=== PATIENT | female | born 1945 | race Caucasian/White ===

== ENCOUNTER 2022-09-22 21:40 | Inpatient (IN) | payer MEDICARE ==
[2022-09-22] MEDS ORDERED: ASPIRIN 325 MG TAB PO STA (22:37)
--- NOTE | 2022-09-22 22:39 | ED ---
General Adult HPI - General Chief complaint: Neuro Symptoms/Deficit Stated complaint: stroke Time Seen by Provider: 09/22/22 22:00 Source: EMS Mode of arrival: EMS Limitations: no limitations - History of Present Illness Initial comments: 77-year-old female with past mental history of hypothyroid, hypertension, COPD, macular degeneration who presents to the emergency department from [facility]. She states that she awoke in the middle of the night and had right- sided weakness. Her last known well was 9 PM last night. Her symptoms persisted throughout the day and eventually went into [facility]. Lab trace studies were completed and a CT of the patient's head and neck were performed. There is no identifiable signs of stroke. It was recommended that they be transferred to a facility with neurologic capabilities and patient opted to come to the [facility]. She continues to have persistent right-sided weakness. States that she attempted to get out of the bed and ambulate however had no control over her right leg. No previous history of stroke. No head trauma. Does not take any blood thinners. Previously did not require any assistance with ambulation. She denies any new visual changes other than those from her macular degeneration. She did have some slurred speech which appears to have been resolved. No facial droop. No other alleviating, precipitating or modifying factors - Related Data Home Medications Medication Instructions Recorded Confirmed Budesonide/Formoterol Fumarate 2 puff INHALATION RT-BID 09/23/22 09/23/22 [Symbicort 160-4.5 Mcg Inhaler] Levothyroxine Sodium [Synthroid] 112 mcg PO AC-BRKFST 09/23/22 09/23/22 Omeprazole 20 mg PO HS 09/23/22 09/23/22 Tiotropium [place] [Spiriva 1 cap INHALATION RT-DAILY 09/23/22 09/23/22 Handihaler] lisinopriL [Prinivil] 10 mg PO DAILY 09/23/22 09/23/22 Previous Rx's Medication Instructions Recorded Aspirin 81 mg PO DAILY #30 tab 09/25/22 Atorvastatin [Lipitor] 80 mg PO HS #30 tab 09/25/22 Clopidogrel [Plavix] 75 mg PO DAILY 30 Days #30 tab 09/25/22 Allergies Allergy/AdvReac Type Severity Reaction Status Date / Time No Known Allergies Allergy Verified 09/23/22 10:43 Review of Systems ROS Statement: Those systems with pertinent positive or pertinent negative responses have been documented in the HPI. ROS Other: All systems not noted in ROS Statement are negative. Past Medical History - Past Family History Mother Family Medical History: Cancer Additional Family Medical History / Comment(s): compliications of surgery, cervical cancer family Additional Family Medical History / Comment(s): no report of CAD or stroke General Exam Limitations: no limitations General appearance: alert, in no apparent distress Head exam: Present: atraumatic, normocephalic, normal inspection Eye exam: Present: normal appearance, PERRL, EOMI. Absent: scleral icterus, conjunctival injection, periorbital swelling ENT exam: Present: normal exam Neck exam: Present: normal inspection. Absent: tenderness, meningismus, lymphadenopathy Respiratory exam: Present: normal lung sounds bilaterally. Absent: respiratory distress, wheezes, rales, rhonchi, stridor Cardiovascular Exam: Present: regular rate, normal rhythm, normal heart sounds. Absent: systolic murmur, diastolic murmur, rubs, gallop, clicks GI/Abdominal exam: Present: soft, normal bowel sounds. Absent: distended, tenderness, guarding, rebound, rigid Extremities exam: Present: other (4/5 strength rue, 3/5 strength rle, 5/5 strength lue, 4/5 strength lle) Neurological exam: Present: alert, oriented X3, CN II-XII intact Psychiatric exam: Present: normal affect, normal mood Skin exam: Present: warm, dry, intact, normal color. 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 IL interval 146. QRS 96. QTC of 44. No acute ST segment elevations or depressions. Some baseline artifact. EKG was interpreted by myself Medical Decision Making - Medical Decision Making Upon arrival patient was placed in room 3. A thorough history and physical exam was performed. Patient previously had an NIH of 9 at [facility]. NIH is assessed at this time and is 6 for weakness in the right arm and leg. Last known well was 9 PM last night. Patient will receive an aspirin and a statin as she did not receive one at the previous facility. I did repeat laboratory studies. She will be admitted for neurology consultation. Patient remained in stable condition awaiting a bed on the floor - Lab Data Result diagrams: 09/22/22 22:43 09/22/22 22:43 Lab Results 09/22/22 09/22/22 09/22/22 Range/Units 22:43 22:43 22:43 WBC 9.4 (3.8-10.6) k/uL RBC 4.80 (3.80-5.40) m/uL Hgb 14.7 (11.4-16.0) gm/dL Hct 44.0 (34.0-46.0) % MCV 91.8 (80.0-100.0) fL MCH 30.6 (25.0-35.0) pg MCHC 33.4 (31.0-37.0) g/dL RDW 13.1 (11.5-15.5) % Plt Count 288 (150-450) k/uL MPV 9.3 Neutrophils % 67 % Lymphocytes % 22 % Monocytes % 5 % Eosinophils % 5 % Basophils % 1 % Neutrophils # 6.3 (1.3-7.7) k/uL Lymphocytes # 2.1 (1.0-4.8) k/uL Monocytes # 0.5 (0-1.0) k/uL Eosinophils # 0.4 (0-0.7) k/uL Basophils # 0.1 (0-0.2) k/uL PT 10.2 (9.0-12.0) sec INR 1.0 (<1.2) APTT 26.8 (22.0-30.0) sec Sodium 138 (137-145) mmol/L Potassium 4.6 (3.5-5.1) mmol/L Chloride 108 H (98-107) mmol/L Carbon Dioxide 23 (22-30) mmol/L Anion Gap 7 mmol/L BUN 14 (7-17) mg/dL Creatinine 0.89 (0.52-1.04) mg/dL Est GFR (CKD-EPI)AfAm 72 (>60 ml/min/1.73 sqM) Est GFR (CKD-EPI)NonAf 63 (>60 ml/min/1.73 sqM) Glucose 96 (74-99) mg/dL Calcium 9.6 (8.4-10.2) mg/dL Total Bilirubin 0.5 (0.2-1.3) mg/dL AST 24 (14-36) U/L ALT 17 (4-34) U/L Alkaline Phosphatase 105 (38-126) U/L Total Protein 6.6 (6.3-8.2) g/dL Albumin 3.9 (3.5-5.0) g/dL Disposition Clinical Impression: Right sided weakness, Cerebrovascular accident (CVA) Disposition: ADMITTED IP TO THIS [facility] Condition: Stable Is patient prescribed a controlled substance at d/c from ED?: No Time of Disposition: 22:54 Decision to Admit Reason: Admit from EC Decision Date: 09/22/22 Decision Time: 22:54
[2022-09-22 22:55] LABS: Basophils # (A) 0.1 k/uL (0-0.2); Basophils % (A) 1 %; Eosinophils # (A) 0.4 k/uL (0-0.7); Eosinophils % (A) 5 %; HGB 14.7 gm/dL (11.4-16.0); Lymphocytes # (A) 2.1 k/uL (1.0-4.8); Lymphocytes % (A) 22 %; MCH 30.6 pg (25.0-35.0); MCHC 33.4 g/dL (31.0-37.0); MCV 91.8 fL (80.0-100.0); Mean Platelet Volume 9.3; Monocytes # (A) 0.5 k/uL (0-1.0); Monocytes % (A) 5 %; Neutrophils # (A) 6.3 k/uL (1.3-7.7); Neutrophils % (A) 67 %; Platelet Count 288 k/uL (150-450); RDW 13.1 % (11.5-15.5); WBC 9.4 k/uL (3.8-10.6)
[2022-09-22 23:03] LABS: Partial Thromboplastin Time 26.8 sec (22.0-30.0); Prothrombin Time 10.2 sec (9.0-12.0)
[2022-09-22 23:04] LABS: Albumin 3.9 g/dL (3.5-5.0); Calcium 9.6 mg/dL (8.4-10.2); Potassium 4.6 mmol/L (3.5-5.1); Total Bilirubin 0.5 mg/dL (0.2-1.3); Total Protein 6.6 g/dL (6.3-8.2)
--- NOTE | 2022-09-22 23:51 | P.HPIM ---
History of Present Illness H&P Date: 09/22/22 Chief Complaint: stroke like symptoms 77 year old female with hypertension , hyperlipidemia, COPD , hypothyroid patient was at her baseline status of health, however, she woke up this morning with right sided weakness and some numbness over her right side of the tongue and right UE. she was also having some difficulties finding words. she did not notify her family and thought she might have slept on the wrong side of the bed. however, few hours later, she discussed her symptoms with her daughter who decided to take her to [facility] where she was diagnosed with stroke and was transferred to our facility for further neuro eval. upon arrival she was out of the window for tpa, and having residual right sided weakness however, improving overall. she denies any history of stroke, CAD, CHF, afib, recent travel, or hospitalization, denies any history of stroke. patient otherwise , reporting no headache, changes in her vision (known to have macular degenration) no changes in hearing. no recent falls . blood work reviewed and overall unremarkable CT imaging of the brain no acute pathology patient quit smoking for many years, and has started smoking again few months ago , denies any illicit drugs or heavy alcohol Review of Systems Pertinent positives as noted in HPI. All other systems were reviewed and are ne gative Past Medical History Past Medical History: COPD, Hypertension, Thyroid Disorder Smoking Status: Current every day smoker - Past Family History family Additional Family Medical History / Comment(s): no report of CAD or stroke Medications and Allergies Allergies Allergy/AdvReac Type Severity Reaction Status Date / Time No Known Allergies Allergy Verified 09/22/22 21:55 Physical Exam Vitals: Vital Signs Temp Pulse Resp BP Pulse Ox 09/22/22 22:52 83 15 184/83 100 09/22/22 21:56 98.2 F 84 15 171/85 98 Intake and Output 09/22/22 09/22/22 09/23/22 14:59 22:59 06:59 Other: Weight 122.47 kg Constitutional: No acute distress, conversant, pleasant Eyes: Anicteric sclerae, moist conjunctiva, Pupils equal round reactive to light ENMT: NC/AT Oropharynx clear, no erythema, or exudates Neck: Supple no masses, or JVD No carotid bruits No thyromegaly Lungs: Clear to auscultation Clear to percussion Normal respiratory effort, no accessory muscle use Cardiovascular: Heart regular in rate and rhythm, No murmurs, gallops, or rubs No peripheral edema Abdominal: Soft Nontender, no guarding, rebound or rigidity Abdomen moving with respiration Normoactive bowel sounds No hepatomegaly, No splenomegaly No palpable mass No abdominal wall hernia noted Skin: Normal temperature, tone, texture, turgor No induration No subcutaneous nodules No rash, lesions No ulcers Extremities: No digital cyanosis No clubbing Pedal pulses intact and symmetrical Radial pulses intact and symmetrical No calf tenderness Psychiatric: Alert and oriented to person, place and time Appropriate affect fair judgement Neuro Muscles Strength 4/5 in bilateral upper extremities right weaker than left, and 3/5 right lower extremity , 4/5 left lower extremity Sensation to light touch grossly present throughout Cranial nerves II-XII grossly intact No focal sensory deficits finger nose test intact bilaterally heel shine was slightly off with the right foot Lymphatics: no palpable cervical or supraclavicular lymph nodes Results CBC & Chem 7: 09/22/22 22:43 09/22/22 22:43 Labs: Abnormal Lab Results - Last 24 Hours (Table) 09/22/22 Range/Units 22:43 Chloride 108 H (98-107) mmol/L Assessment and Plan Assessment: acute stroke like symptoms CT imaging of the brain no acute pathology neurochecks fall precautions allow for permissible hypertension for 24 hours ASA statin check echo cardiogram cardiac monitoring monitor vital signs PT/OT eval check lipid profile , Thyroid function counseled regarding smoking cessation consult neurology full code DVT PPX mechanical
[2022-09-23] MEDS: ATORVASTATIN 80 MG TAB PO SCH ×2 (00:47→20:22)
[2022-09-23] MEDS: SYMBICORT 160-4.5 MCG INHALER INHALATION SCH ×3 (01:18→20:28)
[2022-09-23] MEDS: ASPIRIN 325 MG TAB PO SCH (08:22)
[2022-09-23] MEDS ORDERED: ATORVASTATIN 40 MG TAB PO SCH (09:00)
--- NOTE | 2022-09-23 12:22 | P.PN ---
Subjective Progress Note Date: 09/23/22 Pt reports improvement in her right sided weakness, but not back to baseline. Gen: awake, alert HEENT: normocephalic, atraumatic, good hearing acuity, moist mucous membranes Resp: good air exchange, breathing comfortably with no accessory muscle use CVS: good distal perfusion x 4, GI: soft, NTTP, ND : no SPT, no CVAT, huston catheter not present MSK: no pitting edema, no clubbing Neuro: Right-sided 4 out of 5 motor weakness, moving all extremities Psych: cooperative, euthymic mood Assessment/plan: Right Sided Weakness CT imaging of the brain no acute pathology neurochecks fall precautions allow for permissible hypertension for 24 hours ASA statin check echo cardiogram cardiac monitoring monitor vital signs PT/OT eval MRI Brain check lipid profile , Thyroid function counseled regarding smoking cessation consult neurology COPD without exacerbation -resume home nebulizers/inhalers Levothyroxine -resume home synthroid full code DVT PPX mechanical Objective - Vital Signs Vital signs: Vital Signs Temp 97.9 F 09/23/22 12:00 Pulse 74 09/23/22 12:00 Resp 21 09/23/22 12:00 BP 138/79 09/23/22 12:00 Pulse Ox 91 L 09/23/22 12:00 FiO2 Intake & Output 09/22/22 09/23/22 09/23/22 18:59 06:59 18:59 Weight 122.47 kg - Labs CBC & Chem 7: 09/22/22 22:43 09/22/22 22:43 Labs: Abnormal Lab Results - Last 24 Hours (Table) 09/22/22 Range/Units 22:43 Chloride 108 H (98-107) mmol/L
--- NOTE | 2022-09-23 16:06 | P.CNNES ---
History of Present Illness Consult date: 09/23/22 Reason for Consult: stroke History of Present Illness: The patient is a pleasant 77-year-old female who is seen in neurologic consultation on September 23, 2022, via teleneurology. The patient reports that her right arm and leg are weak. She also reports slurred speech. She says she woke up yesterday morning with these symptoms, at approximately 3 AM. She felt that she perhaps had laid incorrectly on her side and that the symptoms would resolve. She elected to go back to sleep. When she awoke again at about 9 AM, the symptoms continued to be present. The patient states that she did not notify any family members until her daughter came to her home at approximately 12:30 PM. Because the patient was having right-sided weak ness and slurring of speech, the patient's daughter brought her into the emergency department. The patient denies a history of stroke and TIA. CT scan of the brain was performed in the emergency department, at [facility]. Images are not available for review. There is no reported evidence of acute hemorrhage or infarct. This morning, the patient reports that her right arm weakness has improved somewhat. She is no longer slurring her speech. Her tongue, which was numb initially, is no longer. The patient reports that she is able to swallow without difficulty. The patient denies headache, vision changes, numbness and tingling in her extremities. Past Medical History Past Medical History: COPD, Hypertension, Thyroid Disorder Smoking Status: Current every day smoker - Past Family History family Additional Family Medical History / Comment(s): no report of CAD or stroke Medications and Allergies Home Medications Medication Instructions Recorded Confirmed Type Budesonide/Formoterol Fumarate 2 puff INHALATION RT-BID 09/23/22 09/23/22 History [Symbicort 160-4.5 Mcg Inhaler] Levothyroxine Sodium [Synthroid] 112 mcg PO AC-BRKFST 09/23/22 09/23/22 History Omeprazole 20 mg PO HS 09/23/22 09/23/22 History Tiotropium [place] [Spiriva] 1 cap INHALATION RT-DAILY 09/23/22 09/23/22 History lisinopriL [Prinivil] 10 mg PO DAILY 09/23/22 09/23/22 History Allergies Allergy/AdvReac Type Severity Reaction Status Date / Time No Known Allergies Allergy Verified 09/23/22 10:43 Physical Examination - Vital Signs Vital Signs: Vital Signs Temp Pulse Pulse Resp BP BP Pulse Ox 09/23/22 12:00 97.9 F 74 21 138/79 91 L 09/23/22 08:00 97.8 F 84 16 128/78 91 L 09/23/22 05:10 84 15 166/85 99 09/22/22 22:52 83 15 184/83 100 09/22/22 21:56 98.2 F 84 15 171/85 98 Intake and Output 09/23/22 09/23/22 09/23/22 06:59 14:59 22:59 Output Total 0 Balance 0 Output: Urine 0 Gen.: The patient is reclining in the bed. She is in no acute distress. HEENT: Head is atraumatic, normocephalic. Fundus not visualized. There is no scleral icterus. Mucous membranes are moist. Neck: Supple without carotid bruits Heart: Regular rate and rhythm Extremities: Without edema Neurological examination Mental status: The patient is awake, alert and oriented 3. Her speech is clear. There is no dysarthria or aphasia. Cranial nerves: Pupils are equal at 2 mm and reactive. Visual chino are full to confrontation. Extraocular movements are intact. There is no nystagmus. Facial sensation is intact. There is no facial asymmetry. Hearing is grossly intact. Uvula and palate are midline. Shoulder shrug is symmetric. Tongue protrudes midline. Motor: Upper extremity strength is 5/5 bilaterally. Lower extremity strength 4/5 bilaterally. Sensation: Grossly intact to light touch throughout Coordination: Finger to nose and rapid alternating movements are intact. Deep tendon reflexes: 3+/4+ throughout Gait: Not assessed Results - Laboratory Findings CBC and BMP: 09/22/22 22:43 12 22:43 Abnormal Lab Findings: Abnormal Labs 09/22/22 22:43 Chloride 108 H Assessment and Plan Assessment: 1. Probable transient ischemic attack, however small cerebral infarct must be ruled out 2. History of hypertension 3. History of hyperlipidemia Plan: 1. Stroke order set has been placed by the primary team 2. MRI of the brain to further investigate cerebral ischemia 3. 2-D echocardiogram 4. Laboratory evaluation including lipid panel, TSH, hemoglobin A1c 5. Aspirin 325 mg, for further stroke with prevention 6. High-dose statin 7. Agree with PT, OT and speech therapy consultations Thank you for allowing us to participate in the care of this patient Dr. Nails will assume neurologic coverage of this patient as of September 24, 2022 Time with Patient: Greater than 30 (Spent 35 minutes examining patient. An additional 20 minutes was spent reviewing labs, documentation and preparing this note)
[2022-09-23 17:18] LABS: Chol/HDL Ratio 3.62 Ratio; LDL Cholesterol,Calculated 132.5 mg/dL (0.0-131.0); VLDL Calculation 12.98 mg/dL (5.00-40.00)
[2022-09-23] MEDS: PANTOPRAZOLE 40 MG TABLET PO SCH (20:23)
[2022-09-24] MEDS: LEVOTHYROXINE 112 MCG TAB PO SCH (06:02)
[2022-09-24] MEDS: lisinopriL 10 MG TAB PO SCH (08:15)
[2022-09-24] MEDS: ASPIRIN 325 MG TAB PO SCH (08:15)
[2022-09-24] MEDS: IPRATROPIUM-ALBUTEROL 3 ML NEB INHALATION PRN ×3 (08:58→23:58)
[2022-09-24] MEDS: IPRATROPIUM 0.5 MG/2.5 ML NEBU INHALATION SCH ×4 (08:59→22:15)
[2022-09-24] MEDS: SYMBICORT 160-4.5 MCG INHALER INHALATION SCH ×2 (08:59→22:15)
--- NOTE | 2022-09-24 12:56 | MR ---
EXAMINATION TYPE: MR brain wo con DATE OF EXAM: 09/24/2022 12:43 PM COMPARISON: 09/22/2022. CLINICAL INDICATION:Female, 77 years old with history of stroke r/o; TECHNIQUE: Multi planar, multi sequence imaging was performed through the brain including: T1, T2, In version recovery, Diffusion weighted imaging, and gradient echo imaging. No gadolinium was given. FINDINGS: Areas of restricted diffusion are identified including the left basal ganglia and left hung radiata . Scattered foci of high T2 signal intensity are seen within the periventricular white matter. The ventricular system, and cisterns appear unremarkable. Midline structures show no abnormality. Di ffusion-weighted imaging shows no evidence of restricted diffusion. The susceptibility weighted image s revealed pulmonary artifact in left basal ganglia consistent with microhemorrhage. This is just ant erior to the area of acute/subacute stroke. The bone marrow signal is within normal limits. Paranasal sinuses and mastoid air cells: Mild scattered paranasal sinus disease. Visualized orbits: Orbital contents are intact. IMPRESSION: 1. Acute/subacute CVA, to my coronal infarcts involving the left hung radiata and area within the l eft basal ganglia. 2. Nonspecific white matter changes, likely secondary to small vessel ischemic disease.
--- NOTE | 2022-09-24 14:46 | P.PN ---
Subjective Progress Note Date: 09/24/22 Pt reports improvement in her right sided weakness, now back to baseline. MRI shows acute/subacute stroke. Pending echo, carotid doppler. Gen: awake, alert HEENT: normocephalic, atraumatic, good hearing acuity, moist mucous membranes Resp: good air exchange, breathing comfortably with no accessory muscle use CVS: good distal perfusion x 4, GI: soft, NTTP, ND : no SPT, no CVAT, huston catheter not present MSK: no pitting edema, no clubbing Neuro: Right-sided 5 out of 5 motor weakness, moving all extremities Psych: cooperative, euthymic mood Assessment/plan: Acute/Subacute Stroke CT imaging of the brain no acute pathology neurochecks fall precautions allow for permissible hypertension for 24 hours ASA statin, plavix for 21 days, starting 09/24, end date 10/15 check echo cardiogram, pending Carotid doppler, pending cardiac monitoring monitor vital signs PT/OT eval MRI Brain = acute/subacute stroke check lipid profile , Thyroid function counseled regarding smoking cessation consult neurology COPD without exacerbation -resume home nebulizers/inhalers Levothyroxine -resume home synthroid full code DVT PPX mechanical Objective - Vital Signs Vital signs: Vital Signs Temp 98.1 F 09/24/22 08:15 Pulse 82 09/24/22 11:00 Resp 17 09/24/22 11:00 BP 137/58 09/24/22 11:00 Pulse Ox 94 L 09/24/22 11:00 FiO2 Intake & Output 09/23/22 09/24/22 09/24/22 18:59 06:59 18:59 Intake Total 118 236 Output Total 0 0 Balance 118 0 236 Weight 122.47 kg Intake: Oral 118 236 Output: Urine 0 Stool 0 Other: Voiding Method Toilet Toilet # Voids 2 - Labs CBC & Chem 7: 09/22/22 22:43 09/22/22 22:43 Labs: Abnormal Lab Results - Last 24 Hours (Table) 09/23/22 Range/Units 06:35 Cholesterol 201.00 H (0.00-200.00) mg/dL LDL Cholesterol, Calc 132.5 H (0.0-131.0) mg/dL
[2022-09-24] MEDS: CLOPIDOGREL 75 MG TAB PO SCH (15:05)
--- NOTE | 2022-09-24 15:06 | US ---
EXAMINATION TYPE: US carotid duplex BILAT DATE OF EXAM: 09/24/2022 COMPARISON: CTA CLINICAL HISTORY: CVA. CVA, pt states right side weakness TECHNIQUE: Carotid duplex ultrasound examination. Indirect Doppler criteria was utilized. 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 Heterogeneous plaque bilaterally with findings suggestive of a 50-69% stenosis in the proximal rig ht internal carotid artery. Criteria for Assigning % of Stenosis / Diameter reduction (Estimation based on the indirect measurements of the internal carotid artery velocities (ICA PSV). 1. Normal (no stenosis)=ICA PSV < 125 cm/s: ratio < 2.0: ICA EDV<40 cm/s. 2. Less than 50% stenosis=ICA PSV < 125 cm/s: ratio < 2.0: ICA EDV<40 cm/s. 3. 50 to 69% stenosis=ICA PSV of 125 to 230 cm/s: ration 2.0 ? 4.0: ICA EDV 40-100 cm/s. 4. Greater than 70% stenosis to near occlusion= ICA PSV > 230 cm/s: ratio > 4.0: ICA EDV > 100 cm/s. 5. Near occlusion= ICA PSV velocities may be low or undetectable: variable ratio and ICA EDV. 6. Total occlusion=unable to detect flow.
[2022-09-24] MEDS: ATORVASTATIN 80 MG TAB PO SCH (20:16)
[2022-09-24] MEDS: PANTOPRAZOLE 40 MG TABLET PO SCH (20:16)
[2022-09-25] MEDS: LEVOTHYROXINE 112 MCG TAB PO SCH (06:04)
[2022-09-25] MEDS: lisinopriL 10 MG TAB PO SCH (08:21)
[2022-09-25] MEDS: CLOPIDOGREL 75 MG TAB PO SCH (08:21)
[2022-09-25] MEDS ORDERED: ASPIRIN 81 MG PO SCH (09:00)
[2022-09-25 09:30] VITALS: TEMP 97.7
[2022-09-25] MEDS: SYMBICORT 160-4.5 MCG INHALER INHALATION SCH ×2 (10:06)
[2022-09-25] MEDS: IPRATROPIUM 0.5 MG/2.5 ML NEBU INHALATION SCH ×3 (10:07→16:55)
--- NOTE | 2022-09-25 10:36 | P.PN ---
Subjective Progress Note Date: 09/24/22 Patient was seen for a follow-up. Patient initially seen by Dr. Flakita Miller. Please refer to her note for details. Patient is a 77-year-old right-handed female, who came to the hospital by ambulance on 09/22/2022 at 9:40 PM, after she woke up and couldn't lift her right arm. Patient believes that she is almost back to normal. She denied any speech difficulty although patient's daughter states that she was not trying to make not slurred her speech". She has to concentrate to make words out. Patient has smoked less than one pack per day for 25 years. She quit for 7 years, then restarted smoking a quarter to half pack per day for the last 7 months. Patient has hypertension but does not have diabetes. No alcohol use. Patient was not taking any antiplatelet medication at home prior to arrival. Objective - Vital Signs Vital signs: Vital Signs Temp 98.1 F 09/24/22 08:15 Pulse 74 09/24/22 17:46 Resp 16 09/24/22 17:46 BP 102/65 09/24/22 14:55 Pulse Ox 92 L 09/24/22 14:55 FiO2 Intake & Output 09/24/22 09/24/22 09/25/22 06:59 18:59 06:59 Intake Total 354 Output Total 0 Balance 0 354 Intake: Oral 354 Output: Stool 0 Other: Voiding Method Toilet Toilet # Voids 2 2 - Exam Patient's mental status, speech and language functions are normal. Cranial nerves II through XII are completely normal. Visual chino are full, face is symmetric. Tongue protrudes the midline. On muscle strength testing, patient has right pronation, but no drift. The muscle strength is completely normal in arms and legs distally and proximally. Sensory examination is equal with no neglect. Cerebellar functions revealed tremulousness for [id number] testing bilaterally but no ataxia. Reflexes are 1+ approximately is 2+ lower extremities and plantars downgoing bilaterally. - Labs CBC & Chem 7: 09/22/22 22:43 09/22/22 22:43 Assessment and Plan Assessment: * Acute ischemic stroke left basal ganglia * Hypertension * Hyperlipidemia * Tobacco use Plan: 1. MRI of the brain revealed acute/subacute CVA involving the left basal ganglia and left coronary radiata. I personally reviewed MRI, agree with the findings. 2. Carotid Doppler revealed heterogeneous plaque bilaterally with findings suggestive of 50-69% stenosis in the proximal right ICA. This is asymptomatic, as the stroke is on the ipsilateral side. Antegrade flow in both vertebral arteries. Recommend patient follow up with vascular surgery or PCP as an outpatient for surveillance of moderate right ICA stenosis. 3. 2-D echocardiogram still pending 4. Lipid panel with cholesterol 201, LDL 132, HDL 55, triglycerides 64. Patient given Lipitor 80 mg at bedtime. We will decrease dose to 40 mg. 5. Agree with starting dual antiplatelet medication with aspirin 81 mg and Plavix 75 mg daily. After 21 days, may stop Plavix and continue aspirin indefinitely. 6. Hemoglobin A1c pending. TSH normal 0.622 7. Agree with PT, OT and speech therapy consultations 8. Neurologically clear, if 2-D echo comes back normal. Recommend patient follow-up with neurologist as an outpatient. 9. Telemetry monitoring.
[2022-09-25] MEDS: IPRATROPIUM-ALBUTEROL 3 ML NEB INHALATION PRN (13:16)
[2022-09-25 16:02] VITALS: BP 151/66; PULSE 88; RESP 18
--- NOTE | 2022-09-25 16:11 | P.DS ---
Providers Date of admission: 09/22/22 22:59 Attending physician: Amina Post MD Consults: 09/22/22 23:34 Consult Physician Routine Consulting Provider: Anil Nails Consult Reason/Comments: stroke Do you want consulting provider notified?: Yes, Notify in am Primary care physician: Sadaf Renteria Hospital Course: Discharge Diagnosis: Acute/subacute stroke COPD without exacerbation Hypothyroidism Hyperlipidemia Hospital Course: Patient is a 77-year-old female with a past drug abuser hypertension, hyperlipidemia, COPD, hypothyroidism who presented to the ED with right-sided weakness and some numbness over the right side of her tongue and right upper extremity. Patient was admitted for stroke workup. Patient's CT head was negative for any acute pathology. MRI did confirm his stroke. Carotid Doppler negative for severe stenosis. LDL is 132. Patient was seen by PT OT and cleared to go home. Echocardiogram is unremarkable. At time of discharge patient blood pressure was also controlled. Patient started on Plavix. She is already on aspirin. Statin was increased to 80 mg daily. Patient deemed stable for discharge by neurology. Patient is looking forward to going home. During hospitalization patient's weakness was improving. Patient seen and examined at bedside.[] Vital signs reviewed and stable. General: [non toxic], [no distress], [appears at stated age] Derm: [warm], [dry] Head: [atraumatic], [normocephalic], [symmetric] Eyes: [EOMI], [no lid lag], [anicteric sclera] Mouth: [no lip lesion], [mucus membranes moist] Cardiovascular: [S1S2 reg], [no murmur], [positive posterior tibial pulse bilateral], Lungs: [CTA bilateral], [no rhonchi, no rales] , [no accessory muscle use] Abdominal: [soft], [ nontender to palpation], [no guarding], [no appreciable organomegaly] Ext: [no gross muscle atrophy], [no edema], [no contractures] Neuro: [ CN II-XI grossly intact], [no focal neuro deficits] Psych: [Alert], [oriented], [appropriate affect] A total of [33] minutes of time were spent preparing this complex discharge summary . Patient Condition at Discharge: Stable Plan - Discharge Summary Discharge Rx Participant: Yes New Discharge Prescriptions: New Aspirin 81 mg PO DAILY #30 tab Clopidogrel [Plavix] 75 mg PO DAILY 30 Days #30 tab Atorvastatin [Lipitor] 80 mg PO HS #30 tab Continue lisinopriL [Prinivil] 10 mg PO DAILY Levothyroxine Sodium [Synthroid] 112 mcg PO AC-BRKFST Omeprazole 20 mg PO HS Tiotropium [place] [Spiriva Handihaler] 1 cap INHALATION RT-DAILY Budesonide/Formoterol Fumarate [Symbicort 160-4.5 Mcg Inhaler] 2 puff INHALATION RT-BID Discharge Medication List Budesonide/Formoterol Fumarate [Symbicort 160-4.5 Mcg Inhaler] 2 puff INHALATION RT-BID 09/23/22 [History] Levothyroxine Sodium [Synthroid] 112 mcg PO AC-BRKFST 09/23/22 [History] Omeprazole 20 mg PO HS 09/23/22 [History] Tiotropium [place] [Spiriva Handihaler] 1 cap INHALATION RT-DAILY 09/23/22 [History] lisinopriL [Prinivil] 10 mg PO DAILY 09/23/22 [History] Aspirin 81 mg PO DAILY #30 tab 09/25/22 [Rx] Atorvastatin [Lipitor] 80 mg PO HS #30 tab 09/25/22 [Rx] Clopidogrel [Plavix] 75 mg PO DAILY 30 Days #30 tab 09/25/22 [Rx] Follow up Appointment(s)/Referral(s): None,Stated [REFERRING] - 1-2 days Discharge Disposition: HOME SELF-CARE
--- NOTE | 2022-09-25 17:26 | P.PN ---
Subjective Progress Note Date: 09/25/22 HPI Patient this morning states that weakness is improving. She is hoping that she can go home today. Echocardiogram is still pending Physical exam Gen: awake, alert HEENT: normocephalic, atraumatic, good hearing acuity, moist mucous membranes Resp: good air exchange, breathing comfortably with no accessory muscle use CVS: good distal perfusion x 4, GI: soft, NTTP, ND : no SPT, no CVAT, huston catheter not present MSK: no pitting edema, no clubbing Neuro: Right-sided 5 out of 5 motor weakness, moving all extremities Psych: cooperative, euthymic mood Assessment/plan: Acute/Subacute Stroke CT imaging of the brain no acute pathology neurochecks fall precautions allow for permissible hypertension for 24 hours ASA statin, plavix for 21 days, starting 09/24, end date 10/15 check echo cardiogram, pending Carotid Doppler negative for severe stenosis cardiac monitoring monitor vital signs PT/OT eval -> recommending home MRI Brain = acute/subacute stroke LDL elevated and patient is on high intensity started counseled regarding smoking cessation consult neurology COPD without exacerbation -resume home nebulizers/inhalers Levothyroxine -resume home synthroid full code DVT PPX mechanical Objective - Vital Signs Vital signs: Vital Signs Temp 97.7 F 09/25/22 08:20 Pulse 88 09/25/22 16:00 Resp 18 09/25/22 16:00 BP 151/66 09/25/22 16:00 Pulse Ox 93 L 09/25/22 16:00 FiO2 Intake & Output 09/24/22 09/25/22 09/25/22 18:59 06:59 18:59 Intake Total 354 360 Balance 354 360 Intake: Oral 354 360 Other: Voiding Method Toilet Toilet # Voids 2 1 5 - Labs CBC & Chem 7: 09/22/22 22:43 09/22/22 22:43
--- NOTE | 2022-09-25 17:43 | CA ---
Transthoracic Echo Report Name: Lisa Fung Age: 77 Gender: F : 1945 Exam Date: 09/25/2022 12:58 Exam Location: [place] Echo Ht (in): 67 Wt (lb): 270 Ordering Physician: Amina Post MD Attending/Referring Phys: [id number], Sejal Gravity Manager Jasmyn Mckeon RDCS Procedure CPT: Indications: stroke Cardiac Hx: Technical Quality: Contrast 1: Total Dose (mL): Contrast 2: Total Dose (mL): MEASUREMENTS (Male / Female) Normal Values 2D ECHO LV Diastolic Diameter PLAX 3.4 cm 4.2 - 5.9 / 3.9 - 5.3 cm LV Systolic Diameter PLAX 2.6 cm IVS Diastolic Thickness 1.8 cm 0.6 - 1.0 / 0.6 - 0.9 cm LVPW Diastolic Thickness 1.7 cm 0.6 - 1.0 / 0.6 - 0.9 cm LV Relative Wall Thickness 1.0 RV Internal Dim ED PLAX 2.5 cm LA Volume 74.2 cm??? 18 - 58 / 22 - 52 cm??? M-MODE Aortic Root Diameter MM 3.6 cm LA Systolic Diameter MM 4.2 cm LA Ao Ratio MM 1.2 AV Cusp Separation MM 2.1 cm DOPPLER AV Peak Velocity 160.4 cm/s AV Peak Gradient 10.3 mmHg LVOT Peak Velocity 112.0 cm/s LVOT Peak Gradient 5.0 mmHg MV Area PHT 3.3 cm??? Mitral E Point Velocity 61.6 cm/s Mitral A Point Velocity 102.9 cm/s Mitral E to A Ratio 0.6 MV Deceleration Time 231.0 ms MV E' Velocity 5.2 cm/s Mitral E to MV E' Ratio 11.8 TR Peak Velocity 337.1 cm/s TR Peak Gradient 45.4 mmHg Right Ventricular Systolic Press 44.9 mmHg FINDINGS Left Ventricle Severely increased septal wall thickness. Severely increased posterior wall thickness. Normal left ventricular systolic function with no obvious regional wall motion abnormalities. Left ventricular ejection fraction is estimated at 55-60 %. Right Ventricle Normal right ventricular size and function. Moderate pulmonary hypertension. Right Atrium Mild right atrial dilatation. Left Atrium Severely increased left atrial volume. Mildly increased left atrial area. Mitral Valve Structurally normal mitral valve. Mild mitral regurgitation. Mild mitral annular calcification. Aortic Valve No aortic valve stenosis or regurgitation. Aortic valve sclerosis. Tricuspid Valve Structurally normal tricuspid valve. Mild tricuspid regurgitation. Pulmonic Valve Trace pulmonic regurgitation. Pericardium No pericardial effusion. Aorta Normal size aortic root and proximal ascending aorta. CONCLUSIONS Left ventricular hypertrophy with normal LV function mild mitral and tricuspid regurgitation Previewed by: Dr. Ralph Venegas MD (Electronically Signed) Final Date: 25 September 2022 17:42
== END 2022-09-25 18:14 | disposition home or self-care (01) | DRG 65 ==
LOC: EC 21:40 → 3SCARD 22:59
PROVIDERS: ADMIT Internal Medicine; ATTEND Internal Medicine
DX: I63.9 Cerebral infarction, unspecified (principal); G81.91 Hemiplegia, unspecified affecting right dominant side; R47.81 Slurred speech; R29.709 NIHSS score 9; R29.706 NIHSS score 6; I10 Essential (primary) hypertension; E78.5 Hyperlipidemia, unspecified; E03.9 Hypothyroidism, unspecified; F17.200 Nicotine dependence, unspecified, uncomplicated; H35.30 Unspecified macular degeneration; J44.9 Chronic obstructive pulmonary disease, unspecified; Z79.51 Long term (current) use of inhaled steroids; Z79.82 Long term (current) use of aspirin; Z79.890 Hormone replacement therapy; Z79.899 Other long term (current) drug therapy; Z71.6 Tobacco abuse counseling
CPT/HCPCS: 36415; 70551; 80053; 80061; 84443; 85025; 85610; 85730; 93005; 93306; 93880; 94640; 99285